=== PATIENT | male | born 1945 | race Caucasian/White ===

== ENCOUNTER 2017-01-24 10:27 | Day surgery (SDC) | payer BC ==
--- NOTE | ~2017-01-24 | EGD ---
EGD REPORT [facility] [address] [address] NAME: BE TORRES : [birth year] STATUS : REG [facility]#: [id number] AGE: 72 ADM/REG DATE : 01/24/17 MR#: [id number] REPORT SERV DATE: 01/24/17 DICTATED BY: CAMILLE BILL DATE: 01/24/17 REPORT STATUS : Draft TRANSCRIBED BY: [facility] DATE: 01/24/17 Endoscopy Center Patient Name: Be Torres Date of : 1945 Attending MD: CAMILLE BILL MD Procedure Date No Time: 01/24/2017 Procedure: Colonoscopy Indications: High risk colon cancer surveillance: Personal history of colonic polyps Referring MD: KERRIE TOVAR Medicines: as per anesthesia Complications: No immediate complications. Procedure: Pre-Anesthesia Assessment: - ASA Grade Assessment: II - A patient with mild systemic disease. After I obtained informed consent, the scope was passed under direct vision. Throughout the procedure, the patient's blood pressure, pulse, and oxygen saturations were monitored continuously. The PCF [id number] was introduced through the anus and advanced to the cecum, identified by appendiceal orifice and ileocecal valve. The colonoscopy was performed without difficulty. The patient tolerated the procedure. The quality of the bowel preparation was fair. Findings: The perianal and digital rectal examinations were normal. A sessile polyp was found in the transverse colon. The polyp was 7 mm in size. The polyp was removed with a jumbo cold forceps. Resection and retrieval were complete. A few small and large-mouthed diverticula were found in the sigmoid colon. Internal hemorrhoids were found during endoscopy and were mild. Impression: - One 7 mm polyp in the transverse colon. Resected and retrieved. - Diverticulosis in the sigmoid colon. - Internal hemorrhoids. Recommendation: - Await pathology results. - Repeat colonoscopy for surveillance based on pathology results. Procedure Code(s): --- Professional --- 34801, Colonoscopy, flexible, proximal to splenic EGD REPORT [address] [place]. [address] NAME: EB TORRES : 41 STATUS : REG [facility]#: [id number] AGE: 72 ADM/REG DATE : 01/24/17 MR#: [id number] REPORT SERV DATE: 01/24/17 DICTATED BY: CAMILLE BILL. DATE: 01/24/17 REPORT STATUS : Draft TRANSCRIBED BY: [employer] DATE: 01/24/17 flexure; with biopsy, single or multiple Diagnosis Code(s): --- Professional --- D12.3, Benign neoplasm of transverse colon K64.8, Other hemorrhoids K57.30, Diverticulosis of large intestine without perforation or abscess without bleeding Z86.010, Personal history of colonic polyps CPT copyright 2013 [employer]. All rights reserved. The codes documented in this report are preliminary and upon sales operations director review may be revised to meet current compliance requirements. CAMILLE BILL MD 01/24/2017 12:22 PM This report has been signed electronically. Number of Addenda: 0 Note Initiated On: 01/24/2017 11:54 AM Scope Withdrawal Time 0 hours 12 minutes 39 seconds [id number] [facility] [place] [address]
[~2017-01-24 10:27] MED LIST: ADVAIR250 INH; HYZAAR 50/12.51 TAB PO; METHOC750B PO; PERCOCET1 TA2 PO; PRINZIDE1 TAB PO; PROAIR HFA INH; SENTAB PO; TRAZ50 PO; XALAT OPH; ZOCOR40 PO
== END 2017-01-24 23:59 | disposition home or self-care (01) ==
LOC: DMU 10:27
PROVIDERS: Internal Medicine Gastroenterology
PROC: 0DBL8ZZ Excision of Transverse Colon, Via Natural or Artificial Opening Endoscopic (ICD-10-PCS; principal; 2017-01-24 12:00)
DX: D12.3 Benign neoplasm of transverse colon (principal); K57.30 Diverticulosis of large intestine without perforation or abscess without bleeding; K64.8 Other hemorrhoids; Z86.010 Personal history of colon polyps; I10 Essential (primary) hypertension; E78.5 Hyperlipidemia, unspecified; E78.00 Pure hypercholesterolemia, unspecified; J45.909 Unspecified asthma, uncomplicated; Z79.51 Long term (current) use of inhaled steroids; Z79.899 Other long term (current) drug therapy; Z98.890 Other specified postprocedural states
CPT/HCPCS: 88305; 94640; A9270-GY